=== PATIENT | female | born 1940 | race Two or more races ===

== ENCOUNTER 2019-08-08 09:52 | Inpatient (IN) | payer OTHER ==
[~2019-08-08] VITALS: Ht 165.1 cm; Wt 63.5 kg
[~2019-08-08 09:52] MED LIST: ALDACTONE25 MG; CANDESARTAN CILE8 MG PO; CARVEDILOL12.5 MG; CIPRO500 MG PO; ENALAPRIL MALEA10 MG; OSTERA TABLET1 EACH PO; PLAVIX75 MG; PNEU16DI2; POLY119PG PO; SIMVASTATIN5 MG PO; SURFAK240 M1 PO; SYNTHROID100 MCG PO; SYNTHROID88 MCG; TRAM1TAB98 PO
--- NOTE | 2019-08-08 10:15 | NUR ---
PACIENTE ALERTA Y ORIENTADA EN [place] ESFERAS, LA MISMA INDICA FATIGA Y MOLESTIA EN EL PECHO DESDE HACE DOS LUGO. SE REALIZA EKG SE PRESENTA A PACIENTE COLOCADA EN AREA DE CHEST PAIN CONECTADA A MONITOR CARDIACO Y OXIMETRIA DE PULSO.
--- NOTE | 2019-08-08 12:19 | NUR ---
SE RECIBE PTE DEL AREA DE TRIAGE, UBICADA EN WILL #16, CONECTADA A MONITOR CARDIACO Y OXIMETRIA DE PULSO. SE REALIZAN PRUEBAS DE LABORATORIO DONOVAN ORDEN MEDICA DE LA DRA ROJAS. CANALIZADA EN MANO RT, AREA PATENTE Y JEVON DE EDEMA O ERITEMA CON ANGIO #20. SE MANTIENE BAJO OBSERVACION EN WILL NIVEL MAS BAJO, BRAVO DE IDENTIFICACION Y BARANDAS ELEVADAS POR PRECAUCION. SE MANTIENE CONECTADA A MONITOR CARDIACO Y OXIMETRIA DE PULSO.
--- NOTE | 2019-08-08 16:18 | NUR ---
PT ALERTA Y ORIENTADA X3 ESFERAS EN COMPANIA DE FAMILIAR. SE RECIBE EN WILL CON BARANDAS ELEVADAS Y FRENOS COLOCADOS. EN UNIDAD DE DOLOR DE PECHO EN CUBICULO 16. CONECTADA A MONITOR CARDIACO HR 61/MIN Y SATUROMETRO DE PULSO 98%, 18RR. RESPIRACIONES ESPONTANEAS. PULMONES SE AUSCULTAN CARMITA. ABDOMEN BLANDO. ORINA EN COMODE BEDSIDE. EXTREMIDADES INFERIORES CON EDEMA NIVEL 1, JEVON MOVIMIENTO EN AMBAS PIERNAS, SIN DIFICULTAD ALGUNA. EXTREMIDADES SUPERIORES LIBRES DE EDEMA, JEVON MOVIMIENTO EN AMBOS BRAZOS SIN DIFICULTAD ALGUNA. HEPARIN LOCK CON ANGIO 20 EN MANO DERECHA, PATENTE JEVON DE EDEMA Y/O ERITEMA. PT [place]. SE MANTIENE BAJO OBSERVACION POR CAMBIOS EN ALBERT. PENDIENTE EVALUACION DE INTERNISTA DR HALL. 400PM- SE CHRISTIANO MUESTRA DE JAYE TROPONINA EN JAYE. PT [place] TX.
== END 2019-08-11 19:39 | disposition home or self-care (01) | DRG 313 ==
LOC: ER 09:52 → MEDJ 20:10 → SEC-K 20:10 → MEDJ 20:46
PROVIDERS: ADMIT Internal Medicine
PROC: 4A12X4Z Monitoring of Cardiac Electrical Activity, External Approach (ICD-10-PCS; principal; 2019-08-08)
PROC: 4A033R1 Measurement of Arterial Saturation, Peripheral, Percutaneous Approach (ICD-10-PCS; 2019-08-08)
PROC: B245ZZZ Ultrasonography of Left Heart (ICD-10-PCS; 2019-08-09)
PROC: BW20YZZ Computerized Tomography (CT Scan) of Abdomen using Other Contrast (ICD-10-PCS; 2019-08-10)
DX: R07.89 Other chest pain (principal); I11.0 Hypertensive heart disease with heart failure; I50.9 Heart failure, unspecified; E03.9 Hypothyroidism, unspecified; E78.5 Hyperlipidemia, unspecified; I25.10 Atherosclerotic heart disease of native coronary artery without angina pectoris

== ENCOUNTER 2021-03-31 11:10 | Emergency (ER) | payer OTHER ==
[~2021-03-31] VITALS: Ht 154.9 cm; Wt 64.9 kg
== END 2021-03-31 17:47 | disposition home or self-care (01) ==
LOC: ER 11:10
DX: R10.31 Right lower quadrant pain (principal)